=== PATIENT | male | born 1995 | race Caucasian/White ===

== ENCOUNTER 2023-11-10 16:51 | Emergency (ER) | payer OTHER, SELFPAY ==
[2023-11-10 17:01] VITALS: BP 144/81; PULSE 63; RESP 16; TEMP 37.4; O2SAT 99
--- NOTE | 2023-11-10 17:07 | ED.URI ---
HPI - URI/Sore Throat General Chief Complaint: Upper Respiratory Infection Stated Complaint: head congestion/ body aches Source: patient and RN notes reviewed Mode of arrival: ambulatory Limitations: no limitations History of Present Illness HPI Narrative: 28-year-old male presented for complaint of headache, body aches, sinus pressure/congestion, cough. Onset 2 days. Taking Tylenol Sinus. Endorses exposure to covid. Denies sob, wheezing, n/v/d/f/c. MD elicited complaint: cough Related Data Home Medications Medication Instructions Recorded Confirmed No Home Medications 11/10/23 11/10/23 Allergies Allergy/AdvReac Type Severity Reaction Status Date / Time valacyclovir Allergy Unknown Verified 11/10/23 17:08 Review of Systems Review of Systems: CONSTITUTIONAL: Endorses malaise, denies chills, sweats, fever EYES: Denies visual changes, redness, or discharge ENT: Reports rhinorrhea, congestion, denies sinus pain, otalgia, sore throat CARDIOVASCULAR: Denies chest pain, palpitations, edema RESPIRATORY: Reports cough, post nasal drainage. Denies dyspnea GASTROINTESTINAL: Denies abdominal pain, nausea, vomiting, diarrhea SKIN: Denies rash or itching MUSCULOSKELETAL: Endorses myalgia NEUROLOGIC: endorses headache PMFSH Surgical History Surgical History (Updated 11/10/23 @ 17:14 by Katy Kinney APRN) History of tonsillectomy Social History Social History (Updated 11/10/23 @ 17:14 by Katy Kinney APRN) Substance use: current Substance use type: marijuana Exam Narrative: GENERAL: well-appearing EYES: PERRLA, conjunctivae clear ENT: Mucous membranes moist. TMs pearly remy with dull light reflex bilaterally; no tragal tenderness. Oropharynx not erythematous without lesions or exudate, tonsils absent no drooling, no hoarseness, no trismus, uvula midline. No tripod positioning, muffled voice, soft palate or pharyngeal wall bulging NECK: Supple. No lymphadenopathy CHEST: Clear to auscultation, breath sounds equal. No wheezing, rhonchi, rales, or stridor. No respiratory distress, speaks in full sentences. HEART: Regular rate and rhythm. No murmur heard. SKIN: Warm, dry, no rash. NEURO: Alert and oriented x3. PSYCH: Normal mood and affect Course Course Emergency Course: Patient is aware of diagnosis, understands and agrees to treatment plan. Anticipatory guidance given. Patient agrees to follow-up as directed and is aware of reasons to seek care at the emergency department. Portions of this record may have been created with voice recognition software Level of Care: Express Care Visit Vital Signs Vital signs: Vital Signs Temperature 99.4 F 11/10/23 17:01 Pulse Rate 63 11/10/23 17:01 Respiratory Rate 16 11/10/23 17:01 Blood Pressure 144/81 H 11/10/23 17:01 Pulse Oximetry 99 11/10/23 17:01 Oxygen Delivery Room Air 11/10/23 17:01 Temperature 99.4 F 11/10/23 17:01 Pulse Rate 63 11/10/23 17:01 Respiratory Rate 16 11/10/23 17:01 Blood Pressure 144/81 H 11/10/23 17:01 Pulse Oximetry 99 11/10/23 17:01 Oxygen Delivery Room Air 11/10/23 17:01 reviewed MDM - URI/Sore Throat MDM Narrative Medical decision making narrative: Discussed physical exam findings. Advised supportive measures and signs/symptoms to go to the ER. Pt is appropriate for outpt treatment and f/u. Differential Diagnosis Differential diagnosis: Likely upper respiratory infection, sinusitis and viral infection Lab Data Labs: Lab Results 11/10/23 Range/Units 17:01 POC Influenza A Ag Negative POC Influenza B Ag Negative Discharge Plan Discharge Clinical Impression: COVID-19 Patient Disposition: Home, Self-Care Condition: Stable Instructions: COVID-19 (Coronavirus Disease 2019) (ED) Additional Instructions: Your rapid COVID test was positive today. The following updated recommendations have been made by the CDC and local Health Departments, re
[2023-11-10 17:10] LABS: EDINFLUASCREEN Negative; EDINFLUBSCREEN Negative
== END 2023-11-10 17:23 | disposition home or self-care (01) ==
PROVIDERS: Emergency Provider Nurse Practitioner Family
DX: U07.1 COVID-19 (principal); F12.90 Cannabis use, unspecified, uncomplicated
CPT/HCPCS: 87426; 87804; 99203; G0463